=== PATIENT | male | born 1995 | race Hispanic/Latino ===

== ENCOUNTER 2017-05-09 19:32 | Emergency (ER) | payer OTHER ==
[2017-05-09] MEDS ORDERED: Dexamethasone 10 MG/ML VIAL ONE (20:51)
[2017-05-09] MEDS ORDERED: AMOXicillin 250 MG CAP ONE (20:51)
== END 2017-05-09 21:00 | disposition home or self-care (01) ==
LOC: ERS 19:32
DX: J02.0 Streptococcal pharyngitis (principal)
CPT/HCPCS: 87081; 87430; 99283; J1100